=== PATIENT | female | born 1950 | race Two or more races ===

== ENCOUNTER 2017-12-06 09:35 | Emergency (ER) | payer OTHER ==
[~2017-12-06] VITALS: Ht 157.5 cm; Wt 65.8 kg
[~2017-12-06 09:35] MED LIST: AMBIEN5 MG; HYZAAR 100-251 UDTAB; JANUMET XR 1001 EACH; SYNTHROID75 MCG; TENORMIN50 M1; ZOLOFT100 MG
[2017-12-06] MEDS ORDERED: DAFLONEX-XL TA1 EACH PO (11:22)
[2017-12-06] MEDS ORDERED: DICLOFENAC SODI50 MG PO (11:22)
[2017-12-06] MEDS ORDERED: ANUSOL-HC30 G2 RECTAL (11:22)
== END 2017-12-06 19:19 | disposition home or self-care (01) ==
LOC: ER 09:35
DX: K64.4 Residual hemorrhoidal skin tags (principal)

== ENCOUNTER 2018-01-11 13:39 | Emergency (ER) | payer OTHER ==
[~2018-01-11] VITALS: Ht 157.5 cm; Wt 67.1 kg
[~2018-01-11 13:39] MED LIST changes: +ANUSOL-HC30 G2 RECTAL; +DAFLONEX-XL TA1 EACH PO; +DICLOFENAC SODI50 MG PO
[2018-01-11] MEDS ORDERED: ATORVASTATIN CA40 MG (14:23)
[2018-01-11] MEDS ORDERED: EVISTA60 MG (14:24)
[2018-01-11] MEDS ORDERED: PREVACID30 MG (14:24)
[2018-01-11] MEDS ORDERED: METFORMIN HCL500 MG (14:24)
== END 2018-01-11 18:57 | disposition home or self-care (01) ==
LOC: ER 13:39
DX: R42 Dizziness and giddiness (principal)

== ENCOUNTER 2019-04-06 15:43 | Inpatient (IN) | payer OTHER ==
[~2019-04-06] VITALS: Ht 157.5 cm; Wt 68.0 kg
[~2019-04-06 15:43] MED LIST changes: +ATORVASTATIN CA40 MG; +EVISTA60 MG; +METFORMIN HCL500 MG; +PREVACID30 MG
[2019-04-10] MEDS ORDERED: PROTONIX40 MG PO (11:41)
[2019-04-10] MEDS ORDERED: CARAFATE1 GM PO (11:41)
[2019-04-10] MEDS ORDERED: ZOLPIDEM TARTRA10 MG PO (11:41)
[2019-04-10] MEDS ORDERED: LOSARTAN POTASS50 MG PO (11:41)
[2019-04-10] MEDS ORDERED: LEVOTHYROXINE125 MCG PO (11:41)
[2019-04-10] MEDS ORDERED: POM (MEDICAMENTO EN PO (11:41)
[2019-04-10] MEDS ORDERED: ATENOLOL100 MG PO (11:41)
[2019-04-10] MEDS ORDERED: LIPITOR40 MG PO (11:41)
== END 2019-04-10 12:23 | disposition home or self-care (01) | DRG 74 ==
LOC: ER 15:43 → SEC-K 04-07 11:54 → MEDJ 04-08 13:05
PROVIDERS: ADMIT Internal Medicine
DX: E11.43 Type 2 diabetes mellitus with diabetic autonomic (poly)neuropathy (principal); E87.1 Hypo-osmolality and hyponatremia; E86.0 Dehydration; E03.8 Other specified hypothyroidism; K21.0 Gastro-esophageal reflux disease with esophagitis; K31.84 Gastroparesis; Z79.4 Long term (current) use of insulin

== ENCOUNTER 2019-06-22 01:20 | Emergency (ER) | payer OTHER ==
[~2019-06-22] VITALS: Ht 157.5 cm; Wt 69.4 kg
[~2019-06-22 01:20] MED LIST changes: +ATENOLOL100 MG PO; +CARAFATE1 GM PO; +LEVOTHYROXINE125 MCG PO; +LIPITOR40 MG PO; +LOSARTAN POTASS50 MG PO; +POM (MEDICAMENTO EN PO; +PROTONIX40 MG PO; +ZOLPIDEM TARTRA10 MG PO
== END 2019-06-22 14:27 | disposition home or self-care (01) ==
LOC: ER 01:20
DX: T42.6X4A Poisoning by other antiepileptic and sedative-hypnotic drugs, undetermined, initial encounter (principal); T45.0X4A Poisoning by antiallergic and antiemetic drugs, undetermined, initial encounter; G47.09 Other insomnia; E87.1 Hypo-osmolality and hyponatremia; Y92.89 Other specified places as the place of occurrence of the external cause